=== PATIENT | male | born 1995 | race Two or more races ===

== ENCOUNTER 2019-09-12 15:22 | Emergency (ER) | payer OTHER ==
[~2019-09-12] VITALS: Ht 170.2 cm; Wt 88.5 kg
[2019-09-12 18:26] VITALS: BP 118/77
== END 2019-09-12 18:44 ==
LOC: EEVIPCON 15:22 → ER 15:22
DX: S40.012A Contusion of left shoulder, initial encounter (principal); W01.0XXA Fall on same level from slipping, tripping and stumbling without subsequent striking against object, initial encounter; Y93.61 Activity, american tackle football; Y92.89 Other specified places as the place of occurrence of the external cause; Y99.8 Other external cause status
CPT/HCPCS: 73030

== ENCOUNTER 2021-10-19 09:49 | Inpatient (IN) | payer OTHER ==
[~2021-10-19] VITALS: Ht 170.2 cm; Wt 89.4 kg
[~2021-10-19 09:49] MED LIST: HYDR-4072 PO
[2021-10-19] MEDS ORDERED: PIPERACILLIN-TAZOB 3.375GM 100 ML IV ONE ×2 (11:00→11:30)
[2021-10-19] MEDS ORDERED: NITROGLYCERIN 0.4 MG SL TAB SL PRN (11:00)
[2021-10-19] MEDS ORDERED: MORPHINE SULFATE INJECTION 2 MG/ML SYRG IV PRN (11:00)
[2021-10-19 11:35] LABS: Basophils # (auto) 0.1 10 ^3/uL (0-0.2); Basophils % (auto) 0.9 % (0.0-2.0); Eosinophils # (auto) 0 10 ^3/uL (0-0.8); Eosinophils % (auto) 0.3 % (0.0-7.0); Hematocrit 44.7 % (41.0-53.0); Lymphocytes # (auto) 1.4 10 ^3/uL (0.4-5.4); Lymphocytes % (auto) 21.1 % (10.0-50.0); Mean Corpuscular Hgb Conc. 35.8 g/dL (32.0-36.0); Mean Corpuscular Volume 83.8 fL (80.0-100.0); Monocytes # (auto) 0.5 10 ^3/uL (0-1.3); Monocytes % (auto) 7.5 % (0.0-12.0); Neutrophils # (auto) 4.6 10 ^3/uL (1.6-8.6); Neutrophils % (auto) 70.2 % (37.0-80.0); Nucleated Red Blood Cells % 0.1 %; Red Blood Cells 5.33 10^6/uL (4.5-5.90); Red Cell Distribution Width 13.3 % (11.8-14.3); White Blood Cell 6.6 10^3/uL (4.4-10.8)
[2021-10-19 11:58] LABS: BUN/Creatinine Ratio 17.3; Calcium 9.2 mg/dL (8.5-10.1); Potassium 3.9 mmol/L (3.5-5.1)
[2021-10-19] MEDS ORDERED: VANCOMYCIN 1GM/250ML 250 ML IV ONE (12:30)
[2021-10-19] MEDS: PIPERACILLIN-TAZOB 3.375GM 100 ML IV SCH ×2 (14:00→22:59)
[2021-10-19 20:00] VITALS: BP 111/62
[2021-10-19] MEDS: VANCOMYCIN 1GM/250ML 250 ML IV SCH (20:37)
[2021-10-19 22:00] VITALS: BP 106/49
[2021-10-20] VITALS (8 sets, daily range): BP systolic 10–140; BP diastolic 41–85
[2021-10-20] MEDS: VANCOMYCIN 1GM/250ML 250 ML IV SCH ×2 (05:16→13:00)
[2021-10-20] MEDS: PIPERACILLIN-TAZOB 3.375GM 100 ML IV SCH ×3 (06:39→18:14)
[2021-10-20] MEDS ORDERED: PNEUMOCOCCAL VACC POLYS 25 MCG/0.5 ML VIAL IM ONE (09:30)
[2021-10-20] MEDS ORDERED: VANCOMYCIN 1GM/250ML 250 ML IV SCH (10:00)
[2021-10-20] MEDS ORDERED: VANCOMYCIN PER PHARMACY 0 MG IV SCH (14:45)
[2021-10-21] MEDS: PIPERACILLIN-TAZOB 3.375GM 100 ML IV SCH ×3 (02:30→22:35)
[2021-10-21] MEDS: HYDROcodone-ACET 5/325MG TAB PO PRN (05:26)
[2021-10-21 05:41] VITALS: BP 95/53
[2021-10-21 09:15] VITALS: BP 110/55
[2021-10-21] MEDS: VANCOMYCIN 1GM/250ML 250 ML IV SCH ×2 (12:30→21:32)
[2021-10-21 13:00] VITALS: BP 114/62
[2021-10-21 17:00] VITALS: BP 130/68
[2021-10-21 22:00] VITALS: BP 118/75
[2021-10-22 05:00] VITALS: BP 103/60
[2021-10-22 05:55] LABS: Basophils # (auto) 0.1 10 ^3/uL (0-0.2); Basophils % (auto) 0.9 % (0.0-2.0); Eosinophils # (auto) 0.2 10 ^3/uL (0-0.8); Eosinophils % (auto) 2.8 % (0.0-7.0); Hematocrit 42.4 % (41.0-53.0); Hemoglobin 14.8 g/dL (13.5-17.5); Lymphocytes # (auto) 2.6 10 ^3/uL (0.4-5.4); Lymphocytes % (auto) 35.7 % (10.0-50.0); Mean Corpuscular Hemoglobin 29.4 pg (28.0-32.0); Mean Corpuscular Hgb Conc. 34.8 g/dL (32.0-36.0); Mean Corpuscular Volume 84.5 fL (80.0-100.0); Monocytes # (auto) 0.6 10 ^3/uL (0-1.3); Monocytes % (auto) 8.2 % (0.0-12.0); Neutrophils # (auto) 3.8 10 ^3/uL (1.6-8.6); Neutrophils % (auto) 52.4 % (37.0-80.0); Nucleated Red Blood Cells % 0.1 %; Red Blood Cells 5.02 10^6/uL (4.5-5.90); Red Cell Distribution Width 13.3 % (11.8-14.3); White Blood Cell 7.2 10^3/uL (4.4-10.8)
[2021-10-22] MEDS: PIPERACILLIN-TAZOB 3.375GM 100 ML IV SCH ×3 (06:13→22:53)
[2021-10-22 06:40] LABS: Potassium 3.8 mmol/L (3.5-5.1)
[2021-10-22 06:46] LABS: BUN/Creatinine Ratio 12.8; Calcium 8.3 mg/dL (8.5-10.1)
[2021-10-22 09:28] VITALS: BP 110/69
[2021-10-22] MEDS: VANCOMYCIN 1GM/250ML 250 ML IV SCH ×2 (11:06→20:53)
[2021-10-22 13:35] VITALS: BP 109/46
[2021-10-22 22:00] VITALS: BP 115/56
[2021-10-23] MEDS: PIPERACILLIN-TAZOB 3.375GM 100 ML IV SCH ×3 (07:00→22:35)
[2021-10-23] MEDS: VANCOMYCIN 1GM/250ML 250 ML IV SCH ×3 (07:00→13:00)
[2021-10-23 08:00] VITALS: BP 107/55
[2021-10-23 09:42] LABS: Potassium 3.7 mmol/L (3.5-5.1)
[2021-10-23] MEDS: ENOXAPARIN SOD 40 MG/0.4 ML SYRINGE SC SCH (10:00)
[2021-10-23 12:00] VITALS: BP 129/48
[2021-10-23 16:00] VITALS: BP 111/55
[2021-10-23 22:00] VITALS: BP 108/95
[2021-10-24] MEDS: VANCOMYCIN 1GM/250ML 250 ML IV SCH ×3 (03:39→22:39)
[2021-10-24 05:00] VITALS: BP 98/52
[2021-10-24 06:37] LABS: Potassium 3.8 mmol/L (3.5-5.1)
[2021-10-24 06:46] LABS: BUN/Creatinine Ratio 14.7; Calcium 8.2 mg/dL (8.5-10.1)
[2021-10-24] MEDS: PIPERACILLIN-TAZOB 3.375GM 100 ML IV SCH (07:02)
[2021-10-24 09:00] VITALS: BP 110/49
[2021-10-24] MEDS: ENOXAPARIN SOD 40 MG/0.4 ML SYRINGE SC SCH (10:00)
[2021-10-24 13:00] VITALS: BP 103/79
[2021-10-24 17:00] VITALS: BP 111/60
[2021-10-24] MEDS: HYDROcodone-ACET 5/325MG TAB PO PRN (19:09)
[2021-10-24 20:59] VITALS: BP 118/77
[2021-10-25 05:01] VITALS: BP 110/73
[2021-10-25 08:52] VITALS: BP 118/66
[2021-10-25] MEDS: VANCOMYCIN 1GM/250ML 250 ML IV SCH (09:00)
[2021-10-25] MEDS: ENOXAPARIN SOD 40 MG/0.4 ML SYRINGE SC SCH (10:00)
[2021-10-25] MEDS: HYDROcodone-ACET 5/325MG TAB PO PRN ×2 (11:39→19:20)
[2021-10-25 13:00] VITALS: BP 130/53
[2021-10-25 17:00] VITALS: BP 112/64
[2021-10-25] MEDS ORDERED: CIPR500T4 PO (17:34)
[2021-10-25] MEDS ORDERED: VANCOMYCIN 1GM/250ML 250 ML IV SCH (21:00)
[2021-10-25 21:17] VITALS: BP 112/64
== END 2021-10-25 22:45 | DRG 603 ==
LOC: EDBD 09:49 → ER 09:49 → OVERFLOW 11:00 → CENTRAL 18:52 → WEST WING 10-23 03:00
PROVIDERS: ADMIT Specialist; ATTEND Internal Medicine
DX: L03.113 Cellulitis of right upper limb (principal); L30.1 Dyshidrosis [pompholyx]; Z20.822 Contact with and (suspected) exposure to COVID-19; T78.40XA Allergy, unspecified, initial encounter
CPT/HCPCS: 36415; 73218; 80048; 80202; 82565; 83605; 85025; 87040; 87081; 87426; 96365; 96367; G0378; J2543